=== PATIENT | female | born 1985 | race Caucasian/White ===

== ENCOUNTER 2022-07-25 02:44 | Emergency (ER) | payer OTHER ==
[~2022-07-25] VITALS: Ht 167.6 cm; Wt 86.2 kg
[2022-07-25] MEDS ORDERED: LEVOTHYROXINE75 MCG PO (02:57)
[2022-07-25] MEDS ORDERED: SERTRALINE HCL100 MG PO (02:57)
[2022-07-25] MEDS ORDERED: BUPROPION XL150 MG PO (02:57)
[2022-07-25] MEDS ORDERED: PROMETHAZINE HC25 M1 PO (02:57)
[2022-07-25] MEDS ORDERED: TRAZODONE HCL100 MG PO (02:57)
== END 2022-07-25 03:33 | disposition home or self-care (01) ==
LOC: ED 02:44
DX: S61.012A Laceration without foreign body of left thumb without damage to nail, initial encounter (principal); W45.8XXA Other foreign body or object entering through skin, initial encounter
CPT/HCPCS: 12001; 99282-25; A9270

== ENCOUNTER 2022-10-02 04:42 | Emergency (ER) | payer OTHER ==
[~2022-10-02] VITALS: Ht 167.6 cm; Wt 85.0 kg
[~2022-10-02 04:42] MED LIST: BUPROPION XL150 MG PO; LEVOTHYROXINE75 MCG PO; PROMETHAZINE HC25 M1 PO; SERTRALINE HCL100 MG PO; TRAZODONE HCL100 MG PO
== END 2022-10-02 06:04 | disposition home or self-care (01) ==
LOC: ED 04:42
DX: S61.214A Laceration without foreign body of right ring finger without damage to nail, initial encounter (principal); E03.9 Hypothyroidism, unspecified; Z88.8 Allergy status to other drugs, medicaments and biological substances; Z79.899 Other long term (current) drug therapy; Z23 Encounter for immunization; W45.8XXA Other foreign body or object entering through skin, initial encounter
CPT/HCPCS: 12001; 73140; 90471; 90715; 99283-25; A9270; J2270

== ENCOUNTER 2022-10-06 16:36 | Emergency (ER) | payer OTHER ==
[~2022-10-06] VITALS: Ht 167.6 cm; Wt 83.2 kg
--- OUTSIDE RECORDS SUMMARY | 2022-10-06 16:46 | XMS ---
PreManage Notification: SUSANA RAMACHANDRAN Security Collar Baster Events No recent Security Events currently on file CRITERIA MET - [facility] - 2 Visits in 30 Days CARE PROVIDERS [facility] Current PHONE: Unknown Rehana has no Care Guidelines for this patient. E.Ana Luisa VISIT COUNT (12 MO.) [facility] [address] [place] [address] TOTAL 5 NOTE: Visits indicate total known visits. ED/C VISIT TRACKING (12 MO.) 10/06/2022 16:37 [facility] [place] TYPE: Emergency COMPLAINT: - WOUND CK 10/02/2022 04:43 [facility] TYPE: Emergency COMPLAINT: - FINGER LACERATION DIAGNOSES: - Hypothyroidism, unspecified - Laceration without foreign body of right ring finger without damage to nail, initial encounter - Allergy status to other drugs, medicaments and biological substances - Other foreign body or object entering through skin, initial encounter - Other adjunct faculty for medical terminology (current) drug therapy - Encounter for immunization 08/06/2022 08:09 [facility] [place] TYPE: Emergency COMPLAINT: - SUTURE REMOVAL 07/25/2022 02:45 [facility] TYPE: Emergency COMPLAINT: - LEFT HAND LAC DIAGNOSES: - Laceration without foreign body of left thumb without damage to nail, initial encounter - Other foreign body or object entering through skin, initial encounter 04/24/2022 22:09 [facility] M[facility] TYPE: Emergency DIAGNOSES: - Emesis - Diarrhea, unspecified - Vomiting, unspecified INPATIENT VISIT TRACKING (12 MO.) No inpatient visits to display in this time frame [email or web address]
[2022-10-06] MEDS ORDERED: CEPHALEXIN500 M1 PO (18:58)
== END 2022-10-06 19:10 | disposition home or self-care (01) ==
LOC: ED 16:36
DX: L03.011 Cellulitis of right finger (principal); E03.9 Hypothyroidism, unspecified; Z88.8 Allergy status to other drugs, medicaments and biological substances; Z79.899 Other long term (current) drug therapy
CPT/HCPCS: 99283; A9270

== ENCOUNTER 2022-10-10 10:22 | Emergency (ER) | payer OTHER ==
[~2022-10-10] VITALS: Ht 167.6 cm; Wt 80.5 kg
[~2022-10-10 10:22] MED LIST changes: +CEPHALEXIN500 M1 PO
--- OUTSIDE RECORDS SUMMARY | 2022-10-10 10:30 | XMS ---
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 EPrashant VISIT COUNT (12 MO.) [address] [place], [place] [address]Magaly Johnson M.C. [address] [place] [address] TOTAL 6 NOTE: Visits indicate total known visits. ED/UCC VISIT TRACKING (12 MO.) 10/10/2022 10:23 [facility] TYPE: Emergency COMPLAINT: - N/V/D, CONFUSION, FATIGUE, DIZZY 10/06/2022 16:37 [facility] TYPE: Emergency COMPLAINT: - WOUND CHECK DIAGNOSES: - Allergy status to other drugs, medicaments and biological substances - Hypothyroidism, unspecified - Cellulitis of right finger - Other alf (current) drug therapy 10/02/2022 04:43 [facility] TYPE: Emergency COMPLAINT: - FINGER LACERATION DIAGNOSES: - Hypothyroidism, unspecified - Laceration without foreign body of right ring finger without damage to nail, initial encounter - Allergy status to other drugs, medicaments and biological substances - Other foreign body or object entering through skin, initial encounter - Other alf (current) drug therapy - Encounter for immunization 08/06/2022 08:09 [facility] TYPE: Emergency COMPLAINT: - SUTURE REMOVAL 07/25/2022 02:45 [facility] TYPE: Emergency COMPLAINT: - LEFT HAND LAC DIAGNOSES: - Laceration without foreign body of left thumb without damage to nail, initial encounter - Other foreign body or object entering through skin, initial encounter 04/24/2022 22:09 [facility] GENESIS [facility]ad TYPE: Emergency DIAGNOSES: - Emesis - Diarrhea, unspecified - Vomiting, unspecified INPATIENT VISIT TRACKING (12 MO.) No inpatient visits to display in this time frame [id number]
== END 2022-10-10 14:21 | disposition home or self-care (01) ==
LOC: ED 10:22
DX: R11.2 Nausea with vomiting, unspecified (principal); R19.7 Diarrhea, unspecified; T36.1X5A Adverse effect of cephalosporins and other beta-lactam antibiotics, initial encounter; Z20.822 Contact with and (suspected) exposure to COVID-19; E03.9 Hypothyroidism, unspecified; Z88.8 Allergy status to other drugs, medicaments and biological substances; Z79.899 Other long term (current) drug therapy
CPT/HCPCS: 36415; 80053; 81003; 83735; 85025; 87502; 96361; 96374; 99284-25; J2405; J7040; U0003

== ENCOUNTER 2024-01-01 09:36 | Emergency (ER) | payer BC ==
[~2024-01-01] VITALS: Ht 167.6 cm; Wt 91.9 kg
[2024-01-01 12:03] LABS: BASOPHILS 0.4 % (0-2); EOSINOPHILS 0.4 % (0-6); HEMATOCRIT 41.6 % (35.0-50.0); HEMOGLOBIN 14.5 g/dL (12.0-18.0); MCH 32.6 (27-36); MCHC 34.8 g/dl (30-36); MCV 93.7 fl (81-99); MONOCYTES 9.6 % (0-12); NEUTROPHILS 53.6 % (39-80); PLATELET COUNT 369 K/uL (140-440); RBC 4.44 M/ul (4.3-5.7); RDW 12.1 (10.5-15.0)
[2024-01-01 12:12] LABS: ALBUMIN 3.9 g/dL (3.4-5.0); ALBUMIN/GLOBULIN RATIO 0.75 (1.1-2.4); BILIRUBIN, TOTAL 0.6 ng/dL (0.2-1.0); BUN/CREATININE RATIO 11.7 (6.0-28.6); CALCIUM 9.2 mg/dL (8.5-10.1); CREATININE, SERUM 0.94 mg/dL (0.55-1.02); PROTEIN, TOTAL 9.1 g/dL (6.4-8.2)
[2024-01-01] MEDS ORDERED: diphenhydrAMINE HCL 50 MG/ML VIAL IV ONE (12:15)
[2024-01-01] MEDS ORDERED: METOCLOPRAMIDE HCL 10 MG/2 ML SDV IV ONE (12:15)
[2024-01-01] MEDS ORDERED: KETOROLAC TROMETHAMINE 30 MG/ML VIAL IV ONE ×2 (12:15→13:15)
[2024-01-01] MEDS ORDERED: SODIUM CHLORIDE 0.9% 1,000 ML IV PRN (14:00)
[2024-01-01] MEDS ORDERED: ONDANSETRON ODT4 MG PO (15:55)
== END 2024-01-01 16:07 | disposition home or self-care (01) ==
LOC: ED 09:36
PROVIDERS: Emergency Medicine
DX: R51.9 Headache, unspecified (principal); R11.2 Nausea with vomiting, unspecified; R19.7 Diarrhea, unspecified; E03.9 Hypothyroidism, unspecified; Z79.890 Hormone replacement therapy; Z79.899 Other long term (current) drug therapy; Z88.8 Allergy status to other drugs, medicaments and biological substances; Z88.1 Allergy status to other antibiotic agents
CPT/HCPCS: 36415; 70450; 80053; 84703; 85025; 96361; 96374; 96375; 96376; 99284-25; J1200; J1885; J2765; J7030

== ENCOUNTER 2024-03-15 08:58 | Day surgery (SDC) | payer BC ==
[~2024-03-15 08:58] MED LIST changes: +DICYCLOMINE HCL10 MG PO; +IBLOOD GLUCOSE TEST STRIP 1 EA TEST VI PRN; +LACTATED RINGER'S 1,000 ML IV SCH; +LIDOCAINE HCL 1% 5 ML SDV INJ ONE; +MIDAZOLAM HCL 5 MG/5 ML VIAL IV PRN; +ONDANSETRON ODT4 MG PO; +fentaNYL citrate 100 MCG/2 ML VIAL IV PRN
[2024-03-15 09:13] VITALS: BP 107/55
[2024-03-15] MEDS ORDERED: fentaNYL citrate 100 MCG/2 ML VIAL ONE (09:35)
[2024-03-15] MEDS ORDERED: MIDAZOLAM HCL 5 MG/5 ML VIAL ONE ×2 (09:36→10:04)
--- NOTE | 2024-03-15 10:27 | NUR ---
03/15/24 Lorri7 Ema Schroeder 1022- PT ARRIVES TO DAY SURGERY ROOM #11 FOR RECOVERY. PT RESPONSIVE TO VERBAL STIMULI. FALLS BACK TO SLEEP WHEN NOT BEING TALKED TO. RESP EVEN AND UNLABORED. OXYGEN SAT HIGH 90'S TO 100% ON 2L VIA CO2 NC.
[2024-03-15 11:14] VITALS: BP 109/60
--- NOTE | 2024-03-16 06:48 | OR ---
[facility] [address], [place] [address] Signed DATE OF OPERATION: 03/15/2024 SURGEON: Carlton Umana MD PREOPERATIVE DIAGNOSES: 1. Left lower quadrant and generalized abdominal pain. 2. Nausea, vomiting, diarrhea. 3. Recently treated C diff colitis with improvement. 4. CT scan with thickened hepatic flexure and transverse colon. 5. Daughter with ulcerative colitis diagnosed at age 11. POSTOPERATIVE DIAGNOSIS: Minimal right and left-sided diverticulosis. PROCEDURE: Colonoscopy with random cold biopsies of the right colon, transverse colon, left colon, sigmoid colon and rectum. ESTIMATED BLOOD LOSS: None. FINDINGS: No visible evidence of any C diff colitis currently. INDICATIONS: Yani is a 38-year-old female asked to see me for a colonoscopy. She has had two months of generalized abdominal pain, left lower quadrant abdominal pain associated with nausea, vomiting, diarrhea. She actually went to the emergency room in December and in January of this year. Her blood work has been fine. She did not have a fever. The CT scan showed what might be a little bit of thickening at hepatic flexure, maybe the transverse colon. She has had no rectal bleeding. She tried an empiric course of azithromycin, which it was of no help. Initial stool studies were formed because she was taking Imodium. They were not particularly helpful. She repeated the stool studies and told me she was found to have C diff colitis. She was started on Flagyl the day before the office visit. She told me today she is much better, but I think she is still having some diarrhea. She told me that her daughter was diagnosed with ulcerative colitis at age 11. They just spent 45 days at [facility] in [place], [place] where her daughter required a total abdominal proctocolectomy with an ileoanal J-pouch anastomosis and a loop ileostomy. It sounds suspicious that she may have picked up C difficile colitis while at the hospital. Her daughter has not been sick with any C Electronically Signed By: CARLTON UMANA MD 03/16/24 0648 PATIENT NAME: YANI RAMACHANDRAN OPERATIVE REPORT DATE OF : 81 REPORT #: [id number] PHYSICIAN: CARLTON UMANA MD PCP: UZMA ULRICH REPORT IS CONFIDENTIAL AND NOT TO BE RELEASED WITHOUT AUTHORIZATION [facility] [address], [place] [address] Signed difficile colitis. Yani has some insomnia at baseline, but the whole year has made her quite exhausted. In the office, I gave her a pamphlet on colonoscopy. We had reviewed the nature of the test. There is risk including, but not limited to gas bloating, crampy abdominal pain, bleeding, perforation requiring surgery, and missed diagnosis. We also reviewed the written instructions for the bowel prep line by line. She told me [facility] uses exact same MiraLAX powder and Dulcolax pills. She is very familiar with colonoscopy since her daughter has been through so many colonoscopy for her ulcerative colitis. We reviewed the need for IV conscious sedation. She understands an adult person will take her home afterwards. She had expressed understanding and wished to proceed. PROCEDURE IN DETAIL: Yani was brought into our endoscopy suite and placed in the left lateral decubitus position. She told overall she was better and she certainly looked less tired. She thinks she is still having some diarrhea. She is aware that the spores can mature in three weeks after treatment and have a rebound and C diff colitis. She was given 6 mg of Versed and 100 mcg of fentanyl to cover the case. A digital rectal exam was performed and this was unremarkable. There were no external hemorrhoids. She had good sphincter tone. There were no masses. The adult colonoscope was introduced and advanced under direct visualization of camera. She had no evidence of any pseudomembranes and there was no odor. Her prep was quite excellent. The scope passed nicely up into the cecum itself. She needed just a little extra sedation and abdominal compression in order to get the scope directly into the cecum itself. We could easily see the appendiceal orifice and the ileocecal valve. We made several attempts to turn the scope up into the terminal ileum without success. The scope was then slowly withdrawn. Despite the fact that her entire colon was unremarkable other than a few diverticula on the right and left, we took random biopsies. These were taken out of the right colon, transverse colon, left colon, sigmoid colon and rectum. Once in the rectum, the scope was retroflexed and we saw no pathology above the anal canal. She prior had just a little bit of tiny internal hemorrhoid tissue. After this, the gas was suctioned out. The colonoscope removed. Yani tolerated the procedure quite well. RECOMMENDATIONS: Yani can return to my office in 7 to 14 days to review her results. She gets a recurrence of the diarrhea. She needs to call her primary care provider immediately to resume her antibiotics. She could also do stool studies if indeed she is having diarrhea to see if the C difficile colitis is cleared. Carlton Umana MD Electronically Signed By: CARLTON UMANA MD 03/16/24 0648 PATIENT NAME: YANI RAMACHANDRAN OPERATIVE REPORT DATE OF : 81 REPORT #: [id number] PHYSICIAN: CARLTON UMANA MD PCP: UZMA ULRICH REPORT IS CONFIDENTIAL AND NOT TO BE RELEASED WITHOUT AUTHORIZATION [facility] [address] [place], [place] [address] Signed ALB/MODL /[id number] cc: Uzma Ulrich DNP, FNP-C Carlton Umana MD Copies: CARLTON UMANA MD ~ Electronically Signed By: CARLTON UMANA MD 03/16/24 0648 PATIENT NAME: YANI RAMACHANDRAN OPERATIVE REPORT DATE OF : 81 REPORT #: [id number] PHYSICIAN: CARLTON UMANA MD PCP: UZMA ULRICH REPORT IS CONFIDENTIAL AND NOT TO BE RELEASED WITHOUT AUTHORIZATION
--- NOTE | 2024-03-17 17:39 | PATH ---
[facility] [address] [facility] [place] [place] [address] Signed SPECIMEN(S): A RIGHT COLON BIOPSY SPECIMEN(S): B TRANSVERSE BIOPSY SPECIMEN(S): C LEFT COLON BIOPSY SPECIMEN(S): D SIGMOID BIOPSY SPECIMEN(S): E RECTUM BIOPSY SPECIMEN SOURCE: A. RIGHT COLON BIOPSY B. TRANSVERSE BIOPSY C. LEFT COLON BIOPSY D. SIGMOID BIOPSY E. RECTUM BIOPSY CLINICAL HISTORY: LLQ pain, diarrhea, vomiting, nausea, recent history of C-Diff (treated recently), thickened hepatic flexure (on CT). Diverticulosis. FINAL PATHOLOGIC DIAGNOSIS: A. Right colon biopsy: - Benign colonic mucosa, negative for specific diagnostic abnormalities. B. Transverse biopsy: - Benign colonic mucosa, negative for specific diagnostic abnormalities. C. Left colon biopsy: - Benign colonic mucosa, negative for specific diagnostic abnormalities. D. Sigmoid biopsy: - Benign colonic mucosa, negative for specific diagnostic abnormalities. E. Rectum biopsy: - Benign colonic mucosa, negative for specific diagnostic abnormalities. JVR:tom MICROSCOPIC EXAMINATION: Histologic sections of all submitted blocks are examined by light microscopy. These findings, together with the gross examination, support the pathologic diagnosis. GROSS DESCRIPTION: A. The specimen, labeled and designated "[place], right colon biopsy," is received in formalin and consists of one zuniga soft tissue fragment, 0.4 cm. Entirely submitted in (A1). B. The specimen, labeled and designated "[place], transverse colon biopsy," is received in formalin and consists of one zuniga soft tissue fragment, 0.4 cm. PATIENT NAME: DEPUTY,SUSANA QUINN PATHOLOGY DATE OF : 81 REPORT #: [id number] PHYSICIAN: WALE BROWN PCP: DAIN MALDONADO REPORT IS CONFIDENTIAL AND NOT TO BE RELEASED WITHOUT AUTHORIZATION [facility] [address] [place], [place] [address] Signed Entirely submitted in (B1). C. The specimen, labeled and designated "[place], left colon biopsy," is received in formalin and consists of two zuniga soft tissue fragments, ranging from 0.2-0.4 cm. Entirely submitted in (C1). D. The specimen, labeled and designated "[place], sigmoid biopsy," is received in formalin and consists of one zuniga soft tissue fragment, 0.3 cm. Entirely submitted in (D1). E. The specimen, labeled and designated "[place], rectum biopsy," is received in formalin and consists of one zuniga soft tissue fragment, 0.2 cm. Entirely submitted in (E1). VB (under the direct supervision of a pathologist) The Gross Description was prepared using a voice recognition system. The report was reviewed for accuracy; however, sound-alike word errors, addition and/or deletions may occur. If there is any question about this report, please contact Client Services. ADDITIONAL NOTES: Immunohistochemical and/or in situ hybridization studies if performed in this case included appropriate positive controls that reacted as expected. This test was developed and its performance characteristics determined by [employer] It has not been cleared or approved by the U.S. Food and Drug Administration. The FDA has determined that such clearance or approval is not necessary. This test is used for clinical purposes. It should not be regarded as investigational or for research. [facility] is certified under the Clinical Laboratory Improvement Amendments of 1988 (CLIA) as qualified to perform high complexity clinical laboratory testing. PERFORMING LABORATORY: Technical component was performed by [facility], [address] [place] [address], [place] [address] (CLIA# [id number]). [facility] - [facility], [address] [place], [place] [address]., [place] [address] (CLIA#: [id number]). Diagnostician: Wang Jones MD Pathologist Electronically Signed 03/17/2024 Copies: PATIENT NAME: LUZMohamudSUSANA PATHOLOGY DATE OF : 81 REPORT #: [id number] PHYSICIAN: WALE PATHOLOGY PCP: DAIN MALDONADO REPORT IS CONFIDENTIAL AND NOT TO BE RELEASED WITHOUT AUTHORIZATION [facility] [address] [facility] [place], [place] [address] Signed ~ PATIENT NAME: TEMARIELENAMohamud,SUSANA QUINN PATHOLOGY DATE OF : 81 REPORT #: [id number] PHYSICIAN: WALE BROWN PCP: DAIN MALDONADO REPORT IS CONFIDENTIAL AND NOT TO BE RELEASED WITHOUT AUTHORIZATION
== END 2024-03-15 11:20 | disposition home or self-care (01) ==
LOC: DS 08:58 → OPS 08:58 → DS 10:30 → OPS 11:20 → DS 03-16 10:30
PROVIDERS: ATTEND Colon & Rectal Surgery
PROC: 0DBL8ZX Excision of Transverse Colon, Via Natural or Artificial Opening Endoscopic, Diagnostic (ICD-10-PCS; 2024-03-15)
PROC: 0DBN8ZX Excision of Sigmoid Colon, Via Natural or Artificial Opening Endoscopic, Diagnostic (ICD-10-PCS; 2024-03-15)
PROC: 0DBP8ZX Excision of Rectum, Via Natural or Artificial Opening Endoscopic, Diagnostic (ICD-10-PCS; 2024-03-15)
PROC: 0DBF8ZX Excision of Right Large Intestine, Via Natural or Artificial Opening Endoscopic, Diagnostic (ICD-10-PCS; 2024-03-15)
PROC: 0DBG8ZX Excision of Left Large Intestine, Via Natural or Artificial Opening Endoscopic, Diagnostic (ICD-10-PCS; principal; 2024-03-15 09:45)
DX: R10.32 Left lower quadrant pain (principal); R10.84 Generalized abdominal pain; K57.30 Diverticulosis of large intestine without perforation or abscess without bleeding; E03.9 Hypothyroidism, unspecified; Z83.79 Family history of other diseases of the digestive system; Z79.899 Other long term (current) drug therapy; Z79.890 Hormone replacement therapy; Z88.8 Allergy status to other drugs, medicaments and biological substances
CPT/HCPCS: 99153; G0500; J2250; J3010

== ENCOUNTER 2024-09-22 14:13 | Emergency (ER) | payer OTHER ==
[~2024-09-22 14:13] MED LIST changes: -IBLOOD GLUCOSE TEST STRIP 1 EA TEST VI PRN; -LACTATED RINGER'S 1,000 ML IV SCH; -LIDOCAINE HCL 1% 5 ML SDV INJ ONE; -MIDAZOLAM HCL 5 MG/5 ML VIAL IV PRN; -fentaNYL citrate 100 MCG/2 ML VIAL IV PRN
[2024-09-22] MEDS ORDERED: HYDROCODONE/ACETA 7.5/325 TAB PO ONE (14:45)
[2024-09-22] MEDS ORDERED: IBUPROFEN 600 MG TAB PO ONE (14:45)
[2024-09-22] MEDS ORDERED: HYDROCODON-ACE1 EA10 PO (16:40)
[2024-09-22 16:45] VITALS: BP 141/74
== END 2024-09-22 16:45 | disposition home or self-care (01) ==
LOC: ED 14:13
DX: M79.672 Pain in left foot (principal); M41.9 Scoliosis, unspecified; E03.9 Hypothyroidism, unspecified; Z88.8 Allergy status to other drugs, medicaments and biological substances; Z88.1 Allergy status to other antibiotic agents; Z79.890 Hormone replacement therapy; Z79.899 Other long term (current) drug therapy
CPT/HCPCS: 73630; 99283; A9270